=== PATIENT | female | born 1990 | race Caucasian/White ===

== ENCOUNTER 2017-04-22 07:32 | Day surgery (SDC) | payer OTHER ==
[~2017-04-22 07:32] MED LIST: Lactated Ringers 1,000 ML IV SCH; Sodium Chloride 0.9% 10 ML Syringe FLUSH PRN; Sodium Chloride 0.9% 2.5 ML Syringe FLUSH PRN; ceFAZolin 2 GM in Premix Bag 1 BAG IV ONE
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
[2017-04-22] MEDS ORDERED: Rocuronium 10 MG/ML 10 ML Syringe ONE (08:28)
[2017-04-22] MEDS ORDERED: Succinylcholine/Normal Saline 200 MG/10 ML Syringe ONE (08:28)
[2017-04-22] MEDS ORDERED: Ondansetron 4 MG/2 ML SDV ONE (08:28)
[2017-04-22] MEDS ORDERED: Dexamethasone 4 MG/ML 5 ML MDV ONE (08:28)
[2017-04-22] MEDS ORDERED: diphenhydrAMINE 50 MG/ML SDV ONE (08:28)
[2017-04-22] MEDS ORDERED: Propofol 200 MG/20 ML SDV ONE (08:29)
[2017-04-22] MEDS ORDERED: Midazolam 1 MG/ML 2 ML SDV ONE (08:29)
[2017-04-22] MEDS ORDERED: fentaNYL 250 MCG/5 ML SDV ONE (08:29)
[2017-04-22] MEDS ORDERED: Albuterol 6.7 GM Inhaler INH ONE (10:02)
--- NOTE | 2017-04-22 11:04 | PCM.POSTAN ---
POST ANESTHESIA ASSESSMENT - RESPIRATORY Respiratory Status: Respiratory Rate WNL, Airway Patent, O2 Saturation Stable - CARDIOVASCULAR CV Status: Pulse Rate WNL, Blood Pressure Stable - GASTROINTESTINAL GI Status: No Symptoms - PAIN Pain Score: 0 - POST OP HYDRATION Hydration Status: Adequate & Stable
--- NOTE | 2017-04-22 11:23 | OR ---
SURGEON: Marry Caldwell M.D. DATE OF PROCEDURE: 04/22/2017 PREOPERATIVE DIAGNOSIS: Left upper ureteral stone, 5 mm. POSTOPERATIVE DIAGNOSIS: Left upper ureteral stone, 5 mm. OPERATION: Extracorporeal shock wave lithotripsy. DESCRIPTION OF OPERATION: The patient was given general anesthesia. She is on the lithotripsy table. Position of the patient was adjusted, so the stone could be treated. The approach, however, had to be anterior because we could not reach the stone through her flank. The stone was treated and monitored along the way and we stopped at 1600 shocks as the shadow of the stone by then completely disappeared. With that done, the procedure was terminated and the patient was sent to recovery room in good condition. RICARDO / ALLEN /[id number]
--- NOTE | 2017-04-22 12:00 | PCM48HPAN ---
Post Anesthesia Note - EVALUATION WITHIN 48HRS OF ANESTHETIC Vital Signs in Normal Range: Yes Patient Participated in Evaluation: Yes Respiratory Function Stable: Yes Airway Patent: Yes Cardiovascular Function Stable: Yes Hydration Status Stable: Yes Pain Control Satisfactory: Yes Nausea and Vomiting Control Satisfactory: Yes Mental Status Recovered: Yes - COMMENTS/OBSERVATIONS Free Text/Narrative:: discussed her bronchoactive status...inhaler left with her for future use PRN.
== END 2017-04-22 12:25 | disposition home or self-care (01) ==
LOC: MW.SDS 07:32
PROVIDERS: ATTEND Urology
DX: N20.1 Calculus of ureter (principal); Z79.84 Long term (current) use of oral hypoglycemic drugs; Z79.899 Other long term (current) drug therapy; Z90.49 Acquired absence of other specified parts of digestive tract; Z90.89 Acquired absence of other organs; Z98.890 Other specified postprocedural states; Z81.8 Family history of other mental and behavioral disorders; Z82.61 Family history of arthritis
CPT/HCPCS: 50590; 81025; A9270; J1100; J1200; J2250; J2405; J3010; J7120; 00873; J2704